=== PATIENT | male | born 1945 | race Caucasian/White ===

== ENCOUNTER 2022-11-15 08:54 | Day surgery (SDC) | payer MEDICARE, MEDICAID, SELFPAY ==
[2022-11-10 08:59] VITALS: BMI 28.6
--- NOTE | 2022-11-11 15:59 | MHC.SHP ---
Pre-Procedural Eval Section A Date of Service: 11/11/22 The patient is an INPATIENT: No Changes since office visit: No Cold of Flu in the past 2 weeks, No New Medical Problems, No Changes in Medication and No Patient answered all questions The History & Physical has been completed within 30 days and I have reviewed it.: Yes Section B Chief Complaint: Age-related nuclear cataract, left eye Allergies: Allergies Allergy/AdvReac Type Severity Reaction Status Date / Time No Known Allergies Allergy Unverified 04/10/20 17:40 [No Known Allergies*] Plan Diagnosis/Plan: Unchanged I have reviewed the history and physical and performed a pertinent physical examination on my patient. No changes have occurred unless specified. Time Spent With Patient Time: Total time managing care of this patient today ____ minutes.
[2022-11-15 09:24] VITALS: BP 161/80; PULSE 83; RESP 16; TEMP 36.6; O2SAT 99
[2022-11-15 10:01] LABS: Glucose, Whole Blood 170 mg/dL (60-115)
--- NOTE | 2022-11-15 10:04 | HO.ANESPROP2 ---
[facility] Past Medical History Medical History (Updated 11/15/22 @ 09:31 by Selena Kilgore RN) Back pain CAD (coronary artery disease) Depression Elevated cholesterol HTN (hypertension) Hx of coronary angiogram Mild cognitive impairment Nephrolithiasis Obesity Osteoarthritis Peripheral neuropathy Type 2 diabetes mellitus Surgical History Surgical History Hx of CABG Hx of right cataract extraction History of Problems with Anesthesia: No Social History Social History Patient Tobacco Use Status: Former Tobacco user Quit Date: 2005 Use of substances other than those prescribed or required for medical reasons: No Are you DNR?: No Advance Directives: No Advance Directives Information Provided: Yes Meds Allergies Allergy/AdvReac Type Severity Reaction Status Date / Time No Known Allergies Allergy Verified 11/15/22 09:32 [No Known Allergies*] Active Medications: Current Medications Lactated Ringer's (Lr) 500 mls @ 50 mls/hr IV .Q10H FAHAD Stop: 11/15/22 19:29 Povidone Iodine (Povidone Iodine 5 % Oph Soln 30 Ml Bottle) 1 appl EYE-LEFT PREOP PRN PRN Reason: Pre-Op Surgical Implant Prophy Home Medications Medication Instructions Recorded Confirmed Last Taken Type acetaminophen 500 mg tablet 500 mg PO QID PRN Pain 11/10/22 11/10/22 Unknown History amlodipine 5 mg tablet 5 mg PO BID 11/10/22 11/10/22 11/15/22 07:30 History aspirin 81 mg tablet,delayed 81 mg PO DAILY 11/10/22 11/10/22 Unknown History release atorvastatin 80 mg tablet 80 mg PO DAILY 11/10/22 11/10/22 Unknown History cholecalciferol (vitamin D3) 25 25 mcg PO DAILY 11/10/22 11/10/22 Unknown History mcg (1,000 unit) capsule (Vitamin D3) cyanocobalamin (vitamin B-12) 1,000 mcg IM QMONTH 11/10/22 11/10/22 Unknown History 1,000 mcg/mL injection solution docusate sodium 100 mg capsule 200 mg PO BEDTIME 11/10/22 11/10/22 Unknown History duloxetine 30 mg capsule,delayed 30 mg PO DAILY 11/10/22 11/10/22 11/15/22 07:30 History release gabapentin 300 mg capsule 300 mg PO BEDTIME 11/10/22 11/10/22 Unknown History metformin 1,000 mg tablet 500 mg PO BID 11/10/22 11/15/22 Unknown History sennosides 8.6 mg tablet (senna) 17.2 mg PO BEDTIME 11/10/22 11/10/22 Unknown History empagliflozin 10 mg tablet 10 mg PO DAILY 11/15/22 11/15/22 Unknown History (Jardiance) furosemide 20 mg tablet 20 mg PO DAILY 11/15/22 11/15/22 Unknown History omeprazole 20 mg capsule,delayed 20 mg PO DAILY 11/15/22 11/15/22 Unknown History release Exam Exam Date and Time: November 15, 2022 1004 Height,Weight and Vital Signs: Height 4 ft 10 in Weight 62.142 kg Pertinent Lab Results Pertinent Lab Results: Laboratory Tests 11/15/22 09:45 POC Glucose 170 H Airway Mallampati Class: III TM Dist: >3cm Neck ROM: Full Denture: Upper and Lower Loose/Missing/Broken Teeth: Yes, Upper and Lower Heart: RRR Lungs: CTA Assessment and Plan Assessment Anesthesia Assessment: Anesthesia Plan Discussed and Chart Reviewed Final Anesthetic Review History of Problems with Anesthesia: No NPO: Yes ASA Class: III Final Preanesthetic Review: Meds/Allgs Chart Reviewed, Consent Obtained/Reviewed and Anes Risks/Benef Reviewed Patient Risk: Intermediate Procedure Risk: Low Anesthetic Plan Anesthetic Plan: MAC: Disposition: Standard PACU
[2022-11-15] MEDS: Tetracaine HCl/PF 0.5% Oph Sol 4 ML DROPS 1 DROP EYE-LEFT (10:07)
[2022-11-15] MEDS: Cyclopentolate 1 % Ophth Sol 2 ML DRPBTL 1 DROP EYE-LEFT ×3 (10:09→10:19)
[2022-11-15] MEDS: Tropicamide 1 % Ophth Sol 3 ML BTL 1 DROP EYE-LEFT ×3 (10:10→10:20)
[2022-11-15] MEDS: Ketorolac Tromethamine 0.5% Op 5 ML DROPS 1 DROP EYE-LEFT ×3 (10:12→10:21)
[2022-11-15] MEDS: Lactated Ringers 500 ML 50 ML IV (10:12)
[2022-11-15] MEDS: Phenylephrine HCL 2.5% Oph SoL 2 ML BOTTLE 1 DROP EYE-LEFT ×3 (10:13→10:22)
--- NOTE | 2022-11-15 10:39 | HO.PNOPHT ---
Ophthalmology Procedure Procedure Date of Service: 11/15/22 Ophthalmology Viscoelastic: Healmaria luz Angelest Dual Pack Pro Ophthalmology Lenses: TECKEYANA [id number] (23.5) Procedure Notes: PREOPERATIVE DIAGNOSIS: Decreased visual acuity left eye secondary to cataract POSTOPERATIVE DIAGNOSIS: Same PROCEDURE: Left cataract extraction with intraocular lens insertion SURGEON: Alireza Crowell M.D. ANESTHESIA: Topical/MAC ESTIMATED BLOOD LOSS: None COMPLICATIONS: None After obtaining informed consent, the patient was brought to the operation room suite and placed in the supine position. After adequate sedation per anesthesia, topical drops of Tetracaine were given to the left eye. The eye was then prepped and draped in the usual sterile fashion. The operating room microscope was then positioned over the operative eye and a lid speculum placed. A paracentesis was created. Viscoelastic was then instilled into the anterior chamber. A three plane incision was then created temporally, utilizing a 2.85 mm keratome. Capsulotomy forceps were then utilized to create a circular tear capsulotomy. Hydrodissection and hydrodelineation were carried out until adequate mobilization of the nucleus occurred. Phacoemulsification was then utilized to remove the dense central nucleus followed by removal of the cortical material utilizing the automated aspiration irrigation unit. Viscoat elastic was instilled into the posterior capsular bag followed by placement of a posterior chamber intraocular lens without difficulty. The residual Viscoat elastic was then removed utilizing the automated IA machine. The wound was check and found to be watertight. The patient tolerated the procedure well and the lid speculum was removed. Intracameral injection of Vigamox 0.1 mL followed by a subtenon injection of Kenalog-40 0.2 mL were administered. The patient will be seen in the a.m.
[2022-11-15 10:56] VITALS: BP 138/57; PULSE 72; RESP 16; TEMP 36.7; O2SAT 99
== END 2022-11-15 11:10 | disposition home or self-care (01) ==
PROVIDERS: PCP Internal Medicine; Visit Provider Ophthalmology
PROC: (CPT 66985; principal; 2022-11-15 11:20)
DX: H25.12 Age-related nuclear cataract, left eye (principal); H52.4 Presbyopia; H18.413 Arcus senilis, bilateral; H11.153 Pinguecula, bilateral; Z96.1 Presence of intraocular lens; I10 Essential (primary) hypertension; E11.9 Type 2 diabetes mellitus without complications; E78.5 Hyperlipidemia, unspecified; I25.10 Atherosclerotic heart disease of native coronary artery without angina pectoris; Z95.1 Presence of aortocoronary bypass graft; Z79.82 Long term (current) use of aspirin; Z79.84 Long term (current) use of oral hypoglycemic drugs; Z79.899 Other long term (current) drug therapy; Z87.891 Personal history of nicotine dependence
CPT/HCPCS: 66984; 82947; J2250; J3301; V2632